=== PATIENT | male | born 1975 | race Caucasian/White ===

== ENCOUNTER 2018-09-03 08:44 | Emergency (ER) | payer BC ==
[2018-09-03] MEDS: CEPHALEXIN 500 MG CAP PO (09:19)
[2018-09-03] MEDS: IBUPROFEN 600 MG TAB PO (09:19)
== END 2018-09-03 09:25 | disposition home or self-care (01) ==
LOC: FTE 08:44
DX: K08.89 Other specified disorders of teeth and supporting structures (principal)
CPT/HCPCS: 99283